=== PATIENT | female | born 1975 | race Caucasian/White ===

== ENCOUNTER 2017-11-17 15:47 | Emergency (ER) | payer OTHER ==
[2017-11-17] MEDS ORDERED: Ketorolac INJ* 60 MG/2 ML VIAL IM ONE (17:27)
[2017-11-17] MEDS ORDERED: Cyclobenzaprine TAB* 10 MG PO ONE ×2 (17:29→17:37)
[2017-11-17 17:32] VITALS: BP 134/77
--- NOTE | 2017-11-17 17:36 | UC ---
Shoulder Pain HPI - HPI Summary HPI Summary: Patient was doing yoga a few days ago, felt a twinge of pain, 2 days later was walking the dog and now shoulder is in severe pain. - History of Current Complaint Stated Complaint: RT SHOULDER COMPLAINT Time Seen by Provider: 11/17/17 17:27 Hx Obtained From: Patient Hx Last Menstrual Period: 3 wks ?: No Onset/Duration: Sudden Onset, Lasting Days Timing: Constant Severity Initially: Moderate Severity Currently: Severe Location Of Pain: Is Discrete @ - antieror shoulder Character: Sharp, Aching, Throbbing Aggravating Factor(s): Movement Alleviating Factor(s): Other Associated Signs And Symptoms: Positive: Weakness Related History: Dominant Hand Right - Allergies/Home Medications Allergies/Adverse Reactions: Allergies Allergy/AdvReac Type Severity Reaction Status Date / Time No Known Allergies Allergy Verified 11/17/17 17:26 Home Medications: Home Medications Naproxen Sodium [Aleve] 220 mg PO DAILY PRN 11/17/17 [History Confirmed 11/17/17 ] PMH/Surg Hx/FS Hx/Imm Hx Previously Healthy: Yes - Surgical History Surgical History: Yes Surgery Procedure, Year, and Place: nasal fx - Family History Known Family History: Positive: Cardiac Disease - dad PA 51, Hypertension, Diabetes - Mom - Social History Alcohol Use: Occasionally Substance Use Type: None Smoking Status (MU): Former Smoker Review of Systems Constitutional: Negative Skin: Negative Eyes: Negative ENT: Negative Respiratory: Negative Cardiovascular: Negative Gastrointestinal: Negative Genitourinary: Negative Motor: Negative Neurovascular: Negative Musculoskeletal: Arthralgia, Myalgia Neurological: Negative Psychological: Negative Is Patient Immunocompromised?: No All Other Systems Reviewed And Are Negative: Yes Physical Exam Triage Information Reviewed: Yes Appearance: Well-Appearing, Well-Nourished, Pain Distress Vital Signs Reviewed: Yes Eye Exam: Normal ENT Exam: Normal ENT: Positive: Pharynx normal, TMs normal Dental Exam: Normal Neck exam: Normal Respiratory Exam: Normal Respiratory: Positive: Chest non-tender, Lungs clear, Normal breath sounds Cardiovascular Exam: Normal Cardiovascular: Positive: RRR, No Murmur, Pulses Normal Abdominal Exam: Normal Abdomen Description: Positive: Nontender, No Organomegaly, Soft Bowel Sounds: Positive: Present Musculoskeletal: Positive: No Edema, Strength Limited @ - in all motions, ROM Limited @ - in aROM and RRom due to pain, PROM is full, Other: - no deformity of the shoulder noted, no pain with palpation of the clavical, scapula or AC joint Neurological Exam: Normal Neurological: Positive: Alert, Muscle Tone Normal Psychological Exam: Normal Skin Exam: Normal Shoulder Course/Dx - Course Assessment/Plan: hx obtained, exam performed ,meds reviewed, sling and medications provieded, educated on management - Differential Dx/Diagnosis Differential Diagnosis/HQI/PQRI: AC Separation, Dislocation, Fracture (Closed), Sprain, Strain Provider Diagnoses: bicep and anterior deltoid strain of right shoulder Discharge - Discharge Plan Condition: Stable Disposition: HOME Prescriptions: Cyclobenzaprine TAB* [Flexeril 10 MG TAB*] 10 mg PO TID PRN #15 tab PRN Reason: Spasms Referrals: MARTIN Peguero [Primary Care Provider] - Lester Parker MD [Emergency Provider] - Additional Instructions: 1. use your sling for rest 2. Use the flexoril and naproxen for pain and spasm. 3. Naproxen ( aleve) you can take 2 tabs every 12 hours for the next 2-3 days, and then back down to 1 tab every 12 hours for 3 days then only as needed. 4. work through pain free ROM multiple times a day and heat the shoulder as well. 5. if you develop more pain or immobility, sustain further injury to the shoulder or are just not improving, follow up with Dr Bhagat for further evaluation.
== END 2017-11-17 18:18 | disposition home or self-care (01) ==
LOC: UCCORT 15:47
DX: S46.211A Strain of muscle, fascia and tendon of other parts of biceps, right arm, initial encounter (principal); S46.811A Strain of other muscles, fascia and tendons at shoulder and upper arm level, right arm, initial encounter; X50.9XXA Other and unspecified overexertion or strenuous movements or postures, initial encounter; Y93.42 Activity, yoga; Z72.89 Other problems related to lifestyle; Y93.K1 Activity, walking an animal; Y92.9 Unspecified place or not applicable; Z87.891 Personal history of nicotine dependence
CPT/HCPCS: 96372; 99213; A9270-GY; G0463; J1885